=== PATIENT | male | born 1990 | race American Indian/Alaskan Native ===

== ENCOUNTER 2018-09-01 08:02 | Emergency (ER) | payer OTHER ==
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
[2018-09-01] MEDS ORDERED: NORCO 7.5/325 PO ONE (08:21)
[2018-09-01] MEDS ORDERED: FLEXERIL PO ONE (08:21)
[2018-09-01] MEDS ORDERED: DELTASONE PO ONE (08:21)
[2018-09-01 09:04] VITALS: BP 144/102
== END 2018-09-01 08:54 | disposition home or self-care (01) ==
LOC: ED 08:02
DX: M79.18 Myalgia, other site (principal); V49.59XA Passenger injured in collision with other motor vehicles in traffic accident, initial encounter; X58.XXXA Exposure to other specified factors, initial encounter; Y93.89 Activity, other specified; Y92.488 Other paved roadways as the place of occurrence of the external cause; Y99.8 Other external cause status
CPT/HCPCS: 99283; J7512